=== PATIENT | female | born 1990 | race American Indian/Alaskan Native ===

== ENCOUNTER 2020-10-29 16:30 | Emergency (ER) | payer MEDICAID ==
[2020-10-29 19:35] LABS: Bilirubin,Urine NEG (Negative); Blood,Urine LG (Negative); Color,Urine Red (Yellow); Urobilinogen,Urine < 2.0 mg/dL (<2.0)
[2020-10-29 19:38] LABS: HCG Qualitative,Urine Positive (Negative)
[2020-10-29 19:45] LABS: Basophils # (Auto) 0.1 K/mm3 (0.0-0.1); Basophils % (Auto) 0.9 % (0.0-1.8); Eosinophils # (Auto) 0.1 K/mm3 (0.0-0.4); Eosinophils % (Auto) 0.6 % (0.0-4.3); Hematocrit 40.8 % (30.3-42.9); Hemoglobin 14.1 gm/dl (10.1-14.3); Lymphocytes # (Auto) 3.8 K/mm3 (1.2-5.4); Lymphocytes % (Auto) 37.7 % (13.4-35.0); Mean Corpuscular HGB Conc 35 % (30-34); Mean Corpuscular Volume 91 fl (79-97); Monocytes # (Auto) 0.6 K/mm3 (0.0-0.8); Monocytes % (Auto) 6.1 % (0.0-7.3); Platelet Count 342 K/mm3 (140-440); Red Cell Distribution Width 13.4 % (13.2-15.2)
[2020-10-29 19:49] LABS: RBC,Urine > 182.0 /HPF (0.0-6.0); WBC,Urine > 182.0 /HPF (0.0-6.0)
[2020-10-29 20:01] LABS: Alanine Aminotransferase 11 units/L (7-56); Albumin 4.5 g/dL (3.9-5); Blood Urea Nitrogen 9 mg/dL (7-17); Calcium 9.6 mg/dL (8.4-10.2); Hemolysis Index 8
[2020-10-29 20:05] LABS: BUN/Creatinine Ratio 15
--- NOTE | 2020-10-29 21:28 | Emergency Department Report ---
ED HPI - General Chief complaint: Vaginal Bleeding Stated complaint: PAIN BLEEDING Time Seen by Provider: 10/29/20 19:05 Source: patient Mode of arrival: Ambulatory Limitations: No Limitations - History of Present Illness Initial comments: Patient is a 30-year-old female presents emergency room with complaints of vaginal bleeding that began earlier today. She states today she has changed her pad approximately 5 times. She states that she did pass a couple of blood clots. She states earlier she was having abdominal cramping but states that it improved. She denies any fever, nausea, vomiting, diarrhea, urinary symptoms, vaginal discharge. She reports that she is approximately 9 weeks . she states that she had bleeding approximately a week ago and was seen at another emergency room and she states that she was told "everything was normal at that time." - Related Data Previous Rx's Medication Instructions Recorded Last Taken Type Acetaminophen [Tylenol] 650 mg PO Q8HR PRN #20 capsule 10/29/20 Unknown Rx Fluconazole [Diflucan TAB] 150 mg PO QDAY 1 Days #3 tablet 10/29/20 Unknown Rx cephALEXin [Keflex] 500 mg PO BID 7 Days #14 capsule 10/29/20 Unknown Rx Allergies Allergy/AdvReac Type Severity Reaction Status Date / Time No Known Allergies Allergy Unverified 10/29/20 17:27 ED Review of Systems ROS: Stated complaint: PAIN BLEEDING Other details as noted in HPI Comment: All other systems reviewed and negative ED Past Medical Hx - Past Medical History Previous Medical History?: No - Surgical History Past Surgical History?: No - Medications Home Medications: Home Medications Medication Instructions Recorded Confirmed Last Taken Type Acetaminophen [Tylenol] 650 mg PO Q8HR PRN #20 capsule 10/29/20 Unknown Rx Fluconazole [Diflucan TAB] 150 mg PO QDAY 1 Days #3 tablet 10/29/20 Unknown Rx cephALEXin [Keflex] 500 mg PO BID 7 Days #14 capsule 10/29/20 Unknown Rx ED Physical Exam - General Limitations: No Limitations General appearance: alert, in no apparent distress - Head Head exam: Present: atraumatic, normocephalic - Eye Eye exam: Present: normal appearance - ENT ENT exam: Present: mucous membranes moist - Respiratory Respiratory exam: Absent: normal lung sounds bilaterally, respiratory distress, wheezes, rales, rhonchi, stridor, chest wall tenderness, accessory muscle use, decreased breath sounds, prolonged expiratory - Cardiovascular Cardiovascular Exam: Present: regular rate, normal rhythm, normal heart sounds. Absent: systolic murmur, diastolic murmur, rubs, gallop - GI/Abdominal GI/Abdominal exam: Present: soft, normal bowel sounds. Absent: distended, tenderness, guarding, rebound, rigid - Neurological Exam Neurological exam: Present: alert, oriented X3 - Psychiatric Psychiatric exam: Present: normal affect, normal mood - Skin Skin exam: Present: warm, dry, intact ED Course Vital Signs 10/29/20 10/29/20 17:26 21:50 Temperature 98.8 F Pulse Rate 93 H 83 Respiratory 18 18 Rate Blood Pressure 149/106 Blood Pressure 147/96 [Left] O2 Sat by Pulse 100 99 Oximetry ED Medical Decision Making - Lab Data Result diagrams: 10/29/20 19:21 10/29/20 19:21 Lab Results 10/29/20 10/29/20 10/29/20 Range/Units 19:15 19:21 19:21 WBC 10.2 (4.5-11.0) K/mm3 RBC 4.50 (3.65-5.03) M/mm3 Hgb 14.1 (10.1-14.3) gm/dl Hct 40.8 (30.3-42.9) % MCV 91 (79-97) fl MCH 31 (28-32) pg MCHC 35 H (30-34) % RDW 13.4 (13.2-15.2) % Plt Count 342 (140-440) K/mm3 Lymph % (Auto) 37.7 H (13.4-35.0) % [place] % (Auto) 6.1 (0.0-7.3) % Eos % (Auto) 0.6 (0.0-4.3) % Baso % (Auto) 0.9 (0.0-1.8) % Lymph # (Auto) 3.8 (1.2-5.4) K/mm3 [place] # (Auto) 0.6 (0.0-0.8) K/mm3 Eos # (Auto) 0.1 (0.0-0.4) K/mm3 Baso # (Auto) 0.1 (0.0-0.1) K/mm3 Seg Neutrophils % 54.7 (40.0-70.0) % Seg Neutrophils # 5.6 (1.8-7.7) K/mm3 Sodium 138 (137-145) mmol/L Potassium 3.8 (3.6-5.0) mmol/L Chloride 101.7 (98-107) mmol/L Carbon Dioxide 26 (22-30) mmol/L Anion Gap 14 mmol/L BUN 9 (7-17) mg/dL Creatinine 0.6 (0.6-1.2) mg/dL Estimated GFR > 60 ml/min BUN/Creatinine Ratio 15 % Glucose 128 H (65-100) mg/dL Calcium 9.6 (8.4-10.2) mg/dL Total Bilirubin 0.20 (0.1-1.2) mg/dL AST 13 (5-40) units/L ALT 11 (7-56) units/L Alkaline Phosphatase 82 (35-129) units/L Total Protein 7.3 (6.3-8.2) g/dL Albumin 4.5 (3.9-5) g/dL Albumin/Globulin Ratio 1.6 % HCG, Quant (0-4) mIU/mL Urine Color Red (Yellow) Urine Turbidity Turbid (Clear) Urine pH 7.0 (5.0-7.0) Ur Specific [place] 1.018 (1.003-1.030) Urine Protein 100 mg/dl (Negative) mg/dL Urine Glucose (UA) Neg (Negative) mg/dL Urine Ketones Neg (Negative) mg/dL Urine Blood Lg (Negative) Urine Nitrite Neg (Negative) Urine Bilirubin Neg (Negative) Urine Urobilinogen < 2.0 (<2.0) mg/dL Ur Leukocyte Esterase Neg (Negative) Urine WBC (Auto) > 182.0 H (0.0-6.0) /HPF Urine RBC (Auto) > 182.0 (0.0-6.0) /HPF U Epithel Cells (Auto) 3.0 (0-13.0) /HPF Urine WBC Clumps 3+ /HPF Urine Yeast (Budding) 3+ /HPF Urine HCG, Qual Positive A (Negative) Blood Type 10/29/20 10/29/20 Range/Units 19:21 Unknown WBC (4.5-11.0) K/mm3 RBC (3.65-5.03) M/mm3 Hgb (10.1-14.3) gm/dl Hct (30.3-42.9) % MCV (79-97) fl MCH (28-32) pg MCHC (30-34) % RDW (13.2-15.2) % Plt Count (140-440) K/mm3 Lymph % (Auto) (13.4-35.0) % [place] % (Auto) (0.0-7.3) % Eos % (Auto) (0.0-4.3) % Baso % (Auto) (0.0-1.8) % Lymph # (Auto) (1.2-5.4) K/mm3 [place] # (Auto) (0.0-0.8) K/mm3 Eos # (Auto) (0.0-0.4) K/mm3 Baso # (Auto) (0.0-0.1) K/mm3 Seg Neutrophils % (40.0-70.0) % Seg Neutrophils # (1.8-7.7) K/mm3 Sodium (137-145) mmol/L Potassium (3.6-5.0) mmol/L Chloride (98-107) mmol/L Carbon Dioxide (22-30) mmol/L Anion Gap mmol/L BUN (7-17) mg/dL Creatinine (0.6-1.2) mg/dL Estimated GFR ml/min BUN/Creatinine Ratio % Glucose (65-100) mg/dL Calcium (8.4-10.2) mg/dL Total Bilirubin (0.1-1.2) mg/dL AST (5-40) units/L ALT (7-56) units/L Alkaline Phosphatase (35-129) units/L Total Protein (6.3-8.2) g/dL Albumin (3.9-5) g/dL Albumin/Globulin Ratio % HCG, Quant 6370 H (0-4) mIU/mL Urine Color (Yellow) Urine Turbidity (Clear) Urine pH (5.0-7.0) Ur Specific [place] (1.003-1.030) Urine Protein (Negative) mg/dL Urine Glucose (UA) (Negative) mg/dL Urine Ketones (Negative) mg/dL Urine Blood (Negative) Urine Nitrite (Negative) Urine Bilirubin (Negative) Urine Urobilinogen (<2.0) mg/dL Ur Leukocyte Esterase (Negative) Urine WBC (Auto) (0.0-6.0) /HPF Urine RBC (Auto) (0.0-6.0) /HPF U Epithel Cells (Auto) (0-13.0) /HPF Urine WBC Clumps /HPF Urine Yeast (Budding) /HPF Urine HCG, Qual (Negative) Blood Type O POSITIVE Vital Signs 10/29/20 10/29/20 17:26 21:50 Temperature 98.8 F Pulse Rate 93 H 83 Respiratory 18 18 Rate Blood Pressure 149/106 Blood Pressure 147/96 [Left] O2 Sat by Pulse 100 99 Oximetry - Radiology Data Radiology results: report reviewed Ordering Physician: HORTENCIA GERONIMO Date of Service: 10/29/20 Procedure(s): US OB transvaginal Accession Number(s): [id number] cc: HORTENCIA GERONIMO ULTRASOUND PELVIS INDICATION: , bleeding. TECHNIQUE: Transabdominal. Transvaginal Duplex Color Doppler used: Yes. COMPARISON: None available FINDINGS: Uterus: Present. Size: 10.7 x 5.7 x 6.2 cm. Endometrial complex: Normal measuring 1.4 cm. Mass lesions: 1.6 cm anterior fibroid. Additional findings: None. Right Ovary -- Normal. Blood flow: Normal. Cyst or mass: None. Left Ovary-- Normal. Blood flow: Normal. Cyst or mass: None. Urinary Bladder: Normal. Free Fluid: None. Additional Findings: None. IMPRESSION: 1. No intrauterine . Endometrial stripe measures 14 mm. 2. Anterior uterine fibroid. 3. No adnexal abnormality. Signer Name: Rickey Quinones MD Signed: 10/29/2020 9:21 PM Workstation Name: [id number] Transcribed By: ES Dictated By: Rickey Quinones MD Electronically Authenticated By: Rickey Quinones MD Signed Date/Time: 10/29/202120 DD/ 18 TD/TT: - Medical Decision Making Patient is a 30-year-old female presents emergency room with complaints of vaginal bleeding that began earlier today. She states today she has changed her pad approximately 5 times. She states that she did pass a couple of blood clots. She states earlier she was having abdominal cramping but states that it improved. She denies any fever, nausea, vomiting, diarrhea, urinary symptoms, vaginal discharge. She reports that she is approximately 9 weeks . she states that she had bleeding approximately a week ago and was seen at another emergency room and she states that she was told "everything was normal at that time." Vitals are stable. No abdominal tenderness on exam, no guarding, no rebound, no rigidity, normal bowel sounds, no peritoneal signs. Labs are stable. Patient is Rh+. OB ultrasound: 1. No intrauterine . Endometrial stripe measures 14 mm. 2. Anterior uterine fibroid. 3. No adnexal abnormality. UA shows evidence of bacteria and yeast, could be contaminated due to large amount of blood, will cover patient. Given that patient had ultrasound a week ago showing IUP and there is now no IUP on ultrasound today this likely represents a spontaneous . Discussed all results with patient answer questions. Discussed the importance of INTAKE COUNSELOR follow-up. Discussed return precautions. Patient given prescription for medication. Advised patient Please take medication as prescribed. Follow-up with a INTAKE COUNSELOR. Return to emergency room for any new or worsening symptoms. Critical care attestation.: If time is entered above; I have spent that time in minutes in the direct care of this critically ill patient, excluding procedure time. ED Disposition Clinical Impression: Spontaneous , Yeast detected UTI (urinary tract infection) Qualifiers: Urinary tract infection type: acute cystitis Hematuria presence: with hematuria Qualified Code(s): N30.01 - Acute cystitis with hematuria Disposition: TO HOME OR SELFCARE Is pt being admited?: No Does the pt Need Aspirin: No Condition: Stable Instructions: Urinalysis Test, Urinary Tract Infection, Adult, [id number], Skin Yeast Infection, Managing Loss Additional Instructions: Please take medication as prescribed. Follow-up with a INTAKE COUNSELOR. Return to emergency room for any new or worsening symptoms. Prescriptions: Fluconazole [Diflucan TAB] 150 mg PO QDAY 1 Days #3 tablet cephALEXin [Keflex] 500 mg PO BID 7 Days #14 capsule Acetaminophen [Tylenol] 650 mg PO Q8HR PRN #20 capsule PRN Reason: pain Referrals: JORDY QUINTERO MD [Staff Physician] - 2-3 Days Time of Disposition: 21:30 Print Language: PALESTINIAN
[2020-10-29 21:55] VITALS: BP 147/96
== END 2020-10-29 21:50 | disposition home or self-care (01) ==
LOC: ED 16:30
DX: O03.9 Complete or unspecified spontaneous abortion without complication (principal); O23.41 Unspecified infection of urinary tract in pregnancy, first trimester; O26.891 Other specified pregnancy related conditions, first trimester; B37.9 Candidiasis, unspecified; Z3A.09 9 weeks gestation of pregnancy; Z79.899 Other long term (current) drug therapy
CPT/HCPCS: 36415; 76801; 76817; 80053; 81001; 81025; 84702; 85025; 86900; 86901